=== PATIENT | female | born 1940 | race Caucasian/White ===

== ENCOUNTER → 2020-03-01 | Outpatient (CLI) | payer MEDICARE ==
[~2020-03-01] MED LIST: LIDOCAINE 1% MDV 20ML VIAL As Ordered ONE; METO25TA4 PO; PANT40TA3 PO; PRAV40TA2 PO; SODIUM BICARBONATE 8.4% INJ 50MEQ 50 ML VIAL As Ordered ONE; SYNT75TA PO
[2020-03-01 10:30] VITALS: BP 156/106
--- NOTE | 2020-03-01 13:41 | REP ---
Ultrasound-guided abdominal wall biopsy This procedure was performed by Peyton Moyer [facility], under the direct supervision of Dr. Bello. The risks and benefits of the procedure were explained to the patient and informed consent was obtained both verbally and written. Directly prior to the start of the procedure, a formal timeout was done in the procedure room. The abdominal wall mass was localized using ultrasound guidance. The skin was prepped and draped in a sterile fashion. 5 ml of buffered lidocaine was used as a local anesthetic. Using ultrasound guidance a small skin maryann was made and a 19/20 gauge coaxial needle biopsy system was inserted and advanced into the anterior abdominal wall mass. 5 core biopsy samples were obtained and sent to the lab. The patient tolerated the procedure well and there were no immediate complications. After the appropriate monitored convalescence the patient was discharged home from the department. Reviewed by VERNELL Meyer 03/01/2020 01:29 P Electronically Signed by Reji Bello MD 03/01/2020 01:32 P
== END ==
LOC: M IRPRO 08:17
PROVIDERS: ATTEND Internal Medicine Cardiovascular Disease
DX: M79.89 Other specified soft tissue disorders (principal)

== ENCOUNTER → 2021-09-05 | Outpatient (REF) | payer MEDICARE ==
[~2021-09-05] MED LIST changes: -LIDOCAINE 1% MDV 20ML VIAL As Ordered ONE; +PANT40TA29 PO; -PANT40TA3 PO; -SODIUM BICARBONATE 8.4% INJ 50MEQ 50 ML VIAL As Ordered ONE
[2021-09-05 18:36] LABS: COMPLEMENT C3 103 MG/DL (90-180); COMPLEMENT C4 34 MG/DL (10-40)
== END ==
LOC: M LAB REF 17:50
PROVIDERS: ATTEND Internal Medicine Nephrology
DX: R31.9 Hematuria, unspecified (principal); R80.9 Proteinuria, unspecified

== ENCOUNTER 2022-10-16 16:49 | Emergency (ER) | payer MEDICARE ==
[2022-10-16] MEDS ORDERED: SPIR-10 PO (17:14)
[2022-10-16] MEDS ORDERED: TAMS1CAP17 PO (17:14)
[2022-10-16] MEDS ORDERED: FURO20TA2 PO (17:14)
[2022-10-16 17:20] VITALS: BP 151/101
[2022-10-16 17:29] LABS: ABG BASE EXCESS -1.3 (-2.0-2.0); ABG HCO3 23.4 MEQ/L (22.0-26.0); ABG O2 SATURATION 99.9 % (95.0-99.0); ABG PARTIAL PRESSURE CO2 39.6 mmHg (35.0-45.0); ABG PARTIAL PRESSURE O2 494.8 mmHg (75.0-100.0); ABG STANDARD HCO3 23.4 MEQ/L (22.0-26.0); ABG TOTAL CO2 24.6 MEQ/L (23.0-31.0)
[2022-10-16 17:37] LABS: BASO % 0.2 % (0.0-1.0); HEMATOCRIT 42.1 % (36.0-47.0); HEMOGLOBIN 12.8 g/dl (12.0-15.5); LYMPH # 0.4 10^3/uL (1.5-5.0); LYMPH % 4.4 % (24.0-44.0); MEAN CORPUSCULAR HEMOGLOBIN 29.4 pg (27.0-33.0); MEAN CORPUSCULAR HGB CONC 30.4 g/dl (32.0-36.5); MEAN CORPUSCULAR VOLUME 96.6 fl (80.0-96.0); MONO # 0.5 10^3/uL (0.0-0.8); NEUTROPHILS # 8.9 10^3/uL (1.5-8.5); NEUTROPHILS % 89.6 % (36.0-66.0); PLATELET COUNT, AUTOMATED 218 10^3/uL (150-450); RED BLOOD COUNT 4.36 10^6/uL (4.00-5.40); WHITE BLOOD COUNT 9.9 10^3/uL (4.0-10.0)
[2022-10-16] MEDS ORDERED: ISOVUE-370 76% 100ML VIAL As Ordered ONE (17:44)
[2022-10-16 17:52] LABS: INR 0.99; PARTIAL THROMBOPLASTIN TIME 23.5 SECONDS (24.8-34.2); PROTHROMBIN TIME 13.3 SECONDS (12.5-14.5)
[2022-10-16 18:04] VITALS: BP 183/108
[2022-10-16 18:04] LABS: ALBUMIN 3.1 G/DL (3.2-5.2); BILIRUBIN,DIRECT 0.2 MG/DL (<0.4); BILIRUBIN,TOTAL 0.5 MG/DL (0.3-1.2); CALCIUM LEVEL 9.5 MG/DL (8.3-10.6); CK-MB VALUE MASS 7.5 NG/ML (<3.6); CREATININE FOR GFR 1.4 MG/DL (0.55-1.30); GLOMERULAR FILTRATION RATE 38.3 (>32); MB/CK RELATIVE INDEX 1.61 (< OR =4); TOTAL PROTEIN 6.7 G/DL (5.7-8.2)
[2022-10-16 18:57] VITALS: BP 133/76
[2022-10-16 19:12] LABS: CK-MB VALUE MASS 8.8 NG/ML (<3.6)
[2022-10-16 19:13] LABS: MB/CK RELATIVE INDEX 2.12 (< OR =4)
[2022-10-16 19:17] LABS: RSV AMPLIFICATION NEGATIVE (NEGATIVE)
[2022-10-16 20:11] VITALS: BP 148/73
== END 2022-10-16 20:18 | disposition short-term general hospital (02) ==
LOC: EDBD 16:49 → M ED 16:49
DX: I63.9 Cerebral infarction, unspecified (principal); S14.109A Unspecified injury at unspecified level of cervical spinal cord, initial encounter; I48.0 Paroxysmal atrial fibrillation; I10 Essential (primary) hypertension; K21.9 Gastro-esophageal reflux disease without esophagitis; E78.5 Hyperlipidemia, unspecified; E03.9 Hypothyroidism, unspecified; Z79.890 Hormone replacement therapy; Z79.83 Long term (current) use of bisphosphonates; Z79.899 Other long term (current) drug therapy
CPT/HCPCS: 36600; 51702; 70450; 70486; 70496; 70498; 71045; 72125; 80047; 80048; 80076; 82550; 82553; 82803; 84484; 85025; 85610; 85730; 86850; 86900; 86901; 87631; 93005; 93041; 94760; 99285; Q9967